=== PATIENT | female | born 1970 | race American Indian/Alaskan Native ===

== ENCOUNTER 2022-07-29 12:51 | Emergency (ER) | payer OTHER ==
[~2022-07-29] VITALS: Ht 157.5 cm; Wt 83.9 kg
[~2022-07-29 12:51] MED LIST: Aldactone25 MG PO; Bactrim Ds Tab1 EACH PO; FURO20 PO; Halcion0.25 MG PO; Lasix20 MG PO; MAGCHL64ER PO; NEPHRO-VITE RX1 EACH PO; OXYACE5T PO; PRED10 PO; PROM25 PO; SPIR25 PO
== END 2022-07-29 15:07 | disposition home or self-care (01) ==
LOC: ER 12:51
DX: S46.211A Strain of muscle, fascia and tendon of other parts of biceps, right arm, initial encounter (principal); Z79.899 Other long term (current) drug therapy; Z87.891 Personal history of nicotine dependence; X58.XXXA Exposure to other specified factors, initial encounter
CPT/HCPCS: 76882; 99283-25

== ENCOUNTER 2024-05-04 14:44 | Emergency (ER) | payer OTHER ==
[~2024-05-04] VITALS: Ht 157.5 cm; Wt 93.0 kg
[2024-05-04 15:47] LABS: BASOPHILS ABSOLUTE AUTO 0.01 K/mm3 (0.00-0.23); BASOPHILS PERCENT AUTO 0 % (0-2); EOSINOPHILS ABSOLUTE AUTO 0.04 K/mm3 (0.00-0.68); EOSINOPHILS PERCENT AUTO 1 % (0-6); Hematocrit 42.9 % (33.0-51.0); Hemoglobin 14.3 g/dL (11.5-16.0); IMMATURE GRAN ABSOLUTE AUTO 0.02 K/mm3 (0.00-0.10); IMMATURE GRAN PERCENT AUTO 1 % (0-1); LYMPHOCYTES PERCENT AUTO 23 % (21-46); MONOCYTES ABSOLUTE AUTO 0.26 K/mm3 (0.16-1.47); MONOCYTES PERCENT AUTO 9 % (4-13); Mean Corpuscular HGB Conc 33.3 g/dL (31.5-36.5); Mean Corpuscular Volume 99 fL (80-100); Mean Platelet Volume 11.4 fL (9.1-12.4); NEUTROPHILS PERCENT AUTO 66 % (41-73); Platelet Count 145 K/mm3 (150-400); RDW Coefficient Variation 15.1 % (11.7-14.2); RDW Standard Deviation 55.3 fL (35.1-46.3); Red Blood Cell Count 4.33 M/mm3 (3.80-5.20); White Blood Cell Count 3.03 K/mm3 (4.00-11.30)
[2024-05-04 16:08] LABS: Source, Urine Clean Catch
[2024-05-04 16:13] LABS: Appearance, Urine Hazy (Clear); Blood, Urine 1+ (Neg); Color, Urine Amber (P-Yellow); Glucose Qualitative, Urine Neg (Neg); Ketones, Urine 1+ (Neg); Leukocyte Esterase, Urine 1+ (Neg); Nitrite, Urine Pos (Neg); Protein, Urine 2+ (Neg); Specific Gravity, Urine 1.025 (1.003-1.022); Urobilinogen, Urine 3+ (Normal)
[2024-05-04 16:14] LABS: Albumin, Blood 1.6 g/dL (3.4-5.0); Albumin/Globulin Ratio 0.3 (0.8-1.8); Bilirubin, Total 5.5 mg/dL (0.1-1.0); Bun/Creatinine Ratio 15.6 (12.0-20.0); Calcium, Blood 8.8 mg/dL (8.5-10.1); Creatinine, Blood 0.64 mg/dL (0.40-1.00); Globulin, Blood 5.8 g/dL (2.2-4.0); Magnesium, Blood 1.9 mg/dL (1.6-2.4); Potassium, Blood 3.6 mmol/L (3.5-5.5); Total Protein, Blood 7.4 g/dL (6.4-8.2)
[2024-05-04] MEDS ORDERED: FURO40 PO (16:33)
[2024-05-04] MEDS ORDERED: CARV3.125 PO (16:33)
[2024-05-04] MEDS ORDERED: LEVSOD75 PO (16:34)
[2024-05-04] MEDS ORDERED: PANT40 PO (16:34)
[2024-05-04] MEDS ORDERED: ZOLOFT25 MG PO (16:34)
[2024-05-04 16:35] LABS: Bacteria Many /hpf; Bilirubin, Urine 3+ (Neg); Hyaline Casts 0-2 /lpf (0-2); Squamous Epithelial Cells Mod /hpf (Few)
[2024-05-04] MEDS ORDERED: BACL10 PO (16:35)
[2024-05-04] MEDS ORDERED: SUCR1 PO (16:35)
[2024-05-04] MEDS ORDERED: LACT10SY PO (16:36)
[2024-05-04 16:37] LABS: Mucus Light (0-Heavy); Renal Epithelial Rare /hpf (0-Rare)
[2024-05-04 17:47] VITALS: BP 120/75
[2024-05-04] MEDS ORDERED: Ketorolac Tromethamine 10 MG Tab PO ONE (17:50)
[2024-05-04] MEDS ORDERED: CEPH500 PO (17:53)
[2024-05-04] MEDS ORDERED: Cephalexin Monohydrate 500 MG Cap PO ONE (17:55)
== END 2024-05-04 18:10 | disposition home or self-care (01) ==
LOC: ER 14:44
PROVIDERS: Physician Assistant
DX: M54.50 Low back pain, unspecified (principal); G89.29 Other chronic pain; N39.0 Urinary tract infection, site not specified; Z79.899 Other long term (current) drug therapy; Z88.5 Allergy status to narcotic agent
CPT/HCPCS: 80053; 81001; 83735; 85025; 87086; 99283; A9270

== ENCOUNTER 2024-06-12 11:39 | Inpatient (IN) | payer OTHER ==
[~2024-06-12] VITALS: Ht 157.5 cm; Wt 90.0 kg
[~2024-06-12 11:39] MED LIST changes: +BACL10 PO; +CARV3.125 PO; +CEPH500 PO; +CYCL10 PO; +FURO40 PO; +LACT10SY PO; +LEVSOD75 PO; +PANT40 PO; +SUCR1 PO; +ZOLOFT25 MG PO
[2024-06-12 12:13] LABS: BASOPHILS ABSOLUTE AUTO 0.06 K/mm3 (0.00-0.23); BASOPHILS PERCENT AUTO 0 % (0-2); EOSINOPHILS ABSOLUTE AUTO 0.01 K/mm3 (0.00-0.68); EOSINOPHILS PERCENT AUTO 0 % (0-6); Hematocrit 32.4 % (33.0-51.0); Hemoglobin 10.6 g/dL (11.5-16.0); IMMATURE GRAN ABSOLUTE AUTO 0.63 K/mm3 (0.00-0.10); IMMATURE GRAN PERCENT AUTO 3 % (0-1); LYMPHOCYTES ABSOLUTE AUTO 2.84 K/mm3 (0.84-5.20); LYMPHOCYTES PERCENT AUTO 14 % (21-46); MONOCYTES ABSOLUTE AUTO 1.78 K/mm3 (0.16-1.47); MONOCYTES PERCENT AUTO 9 % (4-13); Mean Corpuscular HGB 33.2 pg (26.0-34.0); Mean Corpuscular HGB Conc 32.7 g/dL (31.5-36.5); Mean Corpuscular Volume 102 fL (80-100); Mean Platelet Volume 11.3 fL (9.1-12.4); NEUTROPHILS ABSOLUTE AUTO 15.05 K/mm3 (1.96-9.15); NEUTROPHILS PERCENT AUTO 74 % (41-73); NRBC ABSOLUTE 0.07 K/mm3 (0.00-0.02); NRBC Auto 0.3 /100 WBC (0.0-0.2); Platelet Count 276 K/mm3 (150-400); RDW Coefficient Variation 16.6 % (11.7-14.2); RDW Standard Deviation 61.9 fL (35.1-46.3); Red Blood Cell Count 3.19 M/mm3 (3.80-5.20); White Blood Cell Count 20.37 K/mm3 (4.00-11.30)
[2024-06-12] MEDS ORDERED: NS 1,000 ML IV SCH ×3 (12:20→17:05)
[2024-06-12] MEDS ORDERED: Ketorolac Tromethamine 15mg Vial IV ONE (12:40)
[2024-06-12 12:45] LABS: Magnesium, Blood 2.4 mg/dL (1.6-2.4)
[2024-06-12] MEDS ORDERED: Cyclobenzaprine HCl 10 MG Tab PO ONE (12:45)
[2024-06-12 12:52] LABS: Albumin, Blood 1.3 g/dL (3.4-5.0); Albumin/Globulin Ratio 0.2 (0.8-1.8); Bilirubin, Total 7.2 mg/dL (0.1-1.0); Calcium, Blood 9.9 mg/dL (8.5-10.1); Creatinine, Blood 2.79 mg/dL (0.40-1.00); Globulin, Blood 5.8 g/dL (2.2-4.0); Potassium, Blood 4.8 mmol/L (3.5-5.5); Total Protein, Blood 7.1 g/dL (6.4-8.2)
[2024-06-12] MEDS ORDERED: CefTRIAXone Sodium 1,000 MG in NS 100 ML IV ONE ×2 (13:05→16:05)
[2024-06-12] MEDS ORDERED: Cyclobenzaprine HCl 10 MG Tab PO PRN (15:20)
[2024-06-12 15:33] LABS: Anti-Xa UFH, PHA Monitoring <0.10 IU/mL; Prothrombin Time Results 22.2 Sec (9.7-11.5)
[2024-06-12] MEDS ORDERED: Ondansetron HCl 2 MG / ML 2ML Vial IV PRN (15:40)
[2024-06-12] MEDS ORDERED: HYDROmorphone HCl 2 MG Tab PO PRN (15:40)
[2024-06-12] MEDS ORDERED: NS 1,000 ML IV ONE ×2 (17:00→17:37)
[2024-06-12] MEDS ORDERED: Sucralfate 1 GM Tab PO SCH (17:08)
[2024-06-12 18:47] VITALS: BP 140/88
[2024-06-12 19:44] LABS: Anion Gap 25 mmol/L (3-11); Blood Urea Nitrogen 26 mg/dL (8-24); Bun/Creatinine Ratio 9.5 (12.0-20.0); CO2, Blood 15 mmol/L (21-32); Calcium, Blood 8.2 mg/dL (8.5-10.1); Chloride, Blood 98 mmol/L (98-108); Creatinine, Blood 2.75 mg/dL (0.40-1.00); Glomerular Filtration Rate 20 (60-); Glucose, Blood 81 mg/dL (70-99); Phosphorus, Blood 10.4 mg/dL (2.5-4.9); Potassium, Blood 5.6 mmol/L (3.5-5.5); Sodium, Blood 132 mmol/L (136-145)
[2024-06-12] MEDS ORDERED: Heparin Sodium,Porcine 5,000 UNIT/0.5 ML SDV SC SCH (21:00)
[2024-06-12] MEDS ORDERED: Lactobacil 2-S.Thermo-Bifido 1 1 Cap PO SCH (21:00)
[2024-06-13] MEDS ORDERED: Pantoprazole Sodium 40 MG Injection IV SCH (06:00)
[2024-06-13] MEDS ORDERED: Levothyroxine Sodium 0.075 MG Tab PO SCH (06:00)
[2024-06-13] MEDS ORDERED: Pantoprazole Sodium 40 MG Tab PO SCH (06:00)
[2024-06-13] MEDS ORDERED: Sertraline HCl 50 MG Tab PO SCH (09:00)
[2024-06-13] MEDS ORDERED: CefTRIAXone Sodium 2,000 MG in NS 100 ML IV SCH (17:00)
== END 2024-06-12 23:52 | disposition short-term general hospital (02) | DRG 871 ==
LOC: ER 11:39 → PCU 16:47
PROVIDERS: Emergency Medicine; ADMIT Internal Medicine
PROC: 30233R1 Transfusion of Nonautologous Platelets into Peripheral Vein, Percutaneous Approach (ICD-10-PCS; principal; 2024-06-12)
PROC: 30233N1 Transfusion of Nonautologous Red Blood Cells into Peripheral Vein, Percutaneous Approach (ICD-10-PCS; 2024-06-12)
PROC: 3E03329 Introduction of Other Anti-infective into Peripheral Vein, Percutaneous Approach (ICD-10-PCS; 2024-06-12)
DX: A41.9 Sepsis, unspecified organism (principal); I21.A1 Myocardial infarction type 2; R65.21 Severe sepsis with septic shock; K66.1 Hemoperitoneum; K72.00 Acute and subacute hepatic failure without coma; N17.9 Acute kidney failure, unspecified; N39.0 Urinary tract infection, site not specified; C22.8 Malignant neoplasm of liver, primary, unspecified as to type; M84.58XA Pathological fracture in neoplastic disease, other specified site, initial encounter for fracture; M80.88XA Other osteoporosis with current pathological fracture, vertebra(e), initial encounter for fracture; D64.9 Anemia, unspecified; F10.10 Alcohol abuse, uncomplicated; Z88.5 Allergy status to narcotic agent; Z79.899 Other long term (current) drug therapy; Z79.890 Hormone replacement therapy; K70.30 Alcoholic cirrhosis of liver without ascites; K72.90 Hepatic failure, unspecified without coma; Z98.51 Tubal ligation status; Z90.710 Acquired absence of both cervix and uterus; Z87.891 Personal history of nicotine dependence
CPT/HCPCS: 36430; 71260; 74177; 80053; 80069; 83605; 83690; 83735; 84484; 85018; 85025; 85520; 85610; 86850; 86900; 86901; 86923; 87040; 93005; 93010; 96361; 96365-59; 96375-59; 99285-25; A9270; J0696; J1885; J7030; P9016; Q9967